=== PATIENT | female | born 2000 | race Caucasian/White ===

== ENCOUNTER 2023-01-11 08:19 | Day surgery (SDC) | payer OTHER ==
[2023-01-10 09:23] VITALS: BMI 24.2
[2023-01-11] MEDS ORDERED: MIDAZOLAM HCL 2 MG/2 ML SINGLE DOSE VIAL ONE (08:43)
[2023-01-11] MEDS ORDERED: PROPOFOL 20 ML ONE ×2 (08:43→09:35)
[2023-01-11] MEDS ORDERED: BUPIVACAINE HCL/EPINEPHRINE/PF 30 ML VIAL IJ ONE (08:46)
[2023-01-11] MEDS ORDERED: KETOROLAC TROMETHAMINE 30 MG/1 ML VIAL ONE (09:47)
[2023-01-11] MEDS ORDERED: ceFAZolin SODIUM 1 GM VIAL ONE (09:47)
[2023-01-11] MEDS ORDERED: DEXAMETHASONE SOD PHOSPHATE 4 MG/1 ML VIAL ONE (09:47)
[2023-01-11] MEDS ORDERED: ONDANSETRON 4 MG/2 ML VIAL ONE (09:47)
[2023-01-11] MEDS ORDERED: oxyCODONE HCL 5 MG TABLET PO PRN (10:22)
[2023-01-11] MEDS ORDERED: ONDANSETRON 4 MG/2 ML VIAL IVPUSH PRN (10:22)
[2023-01-11] MEDS ORDERED: ACETAMINOPHEN 1000 MG/100 ML BAG IVPB ONE (10:23)
[2023-01-11] MEDS ORDERED: LACTATED RINGERS SOLUTION 1,000 ML IV SCH (10:30)
[2023-01-11 10:44] VITALS: PULSE 57
[2023-01-11 10:50] VITALS: TEMP 97
[2023-01-11 11:07] VITALS: BP 104/60; RESP 18
== END 2023-01-11 11:27 | disposition home or self-care (01) ==
LOC: FASU 08:19
PROVIDERS: ATTEND Orthopaedic Surgery
PROC: 0SBC4ZZ Excision of Right Knee Joint, Percutaneous Endoscopic Approach (ICD-10-PCS; principal; 2023-01-11 09:37)
DX: M93.261 Osteochondritis dissecans, right knee (principal)
CPT/HCPCS: 81025; 94760

== ENCOUNTER 2023-04-10 09:05 | Day surgery (SDC) | payer OTHER ==
[2023-04-03 18:03] VITALS: BMI 24.2
[2023-04-10] MEDS ORDERED: EPINEPHrine/PF 1 MG/1 ML (1:1,000) AMPULE ONE (09:41)
[2023-04-10] MEDS ORDERED: THROMBIN (BOVINE) 5,000 UNIT VIAL TP ONE (09:42)
[2023-04-10] MEDS ORDERED: BUPIVACAINE HCL/PF 2.5 MG/ML - 30 ML VIAL IJ ONE (09:42)
[2023-04-10] MEDS ORDERED: MIDAZOLAM HCL 2 MG/2 ML SINGLE DOSE VIAL ONE (10:35)
[2023-04-10] MEDS ORDERED: ONDANSETRON 4 MG/2 ML VIAL ONE ×2 (10:36→10:56)
[2023-04-10] MEDS ORDERED: BUPIVACAINE HCL/PF 0.5% (5MG/ML) 10 ML VIAL ONE (10:36)
[2023-04-10] MEDS ORDERED: DEXAMETHASONE SOD PHOSPHATE 4 MG/1 ML VIAL ONE ×2 (10:36→10:56)
[2023-04-10] MEDS ORDERED: BUPIVACAINE LIPOSOME/PF (EXPAREL) 266 MG/20 ML VIAL ONE (10:36)
[2023-04-10] MEDS ORDERED: PROPOFOL 20 ML ONE (10:57)
[2023-04-10] MEDS ORDERED: SUCCINYLCHOLINE CHLORIDE 200 MG/10 ML SYRINGE ONE (10:57)
[2023-04-10] MEDS ORDERED: TRANEXAMIC ACID 1000 MG/10 ML VIAL ONE ×3 (10:58→12:13)
[2023-04-10] MEDS ORDERED: ceFAZolin SODIUM 1 GM VIAL ONE (10:58)
[2023-04-10] MEDS ORDERED: oxyCODONE HCL 5 MG TABLET PO PRN ×2 (13:36)
[2023-04-10] MEDS ORDERED: ONDANSETRON 4 MG/2 ML VIAL IVPUSH PRN (13:36)
[2023-04-10] MEDS ORDERED: FENTANYL CITRATE/PF 50 MCG/ML VIAL ONE ×2 (13:40→13:59)
[2023-04-10] MEDS ORDERED: LACTATED RINGERS SOLUTION 1,000 ML IV SCH (13:45)
[2023-04-10 14:42] VITALS: RESP 20; TEMP 97.4
[2023-04-10 15:17] VITALS: BP 110/60; PULSE 72
[2023-04-10] MEDS: oxyCODONE HCL 5 MG TABLET PO ONE (17:15)
== END 2023-04-10 15:10 | disposition home or self-care (01) ==
LOC: FASU 09:05
PROVIDERS: ATTEND Orthopaedic Surgery
PROC: 0SJC4ZZ Inspection of Right Knee Joint, Percutaneous Endoscopic Approach (ICD-10-PCS; 2023-04-10)
PROC: 0YU Anatomical Regions, Lower Extremities, Supplement (ICD-10-PCS; principal; 2023-04-10 11:23)
DX: M93.261 Osteochondritis dissecans, right knee (principal)
CPT/HCPCS: 27412; 29999; C1713; 81025; 94760